=== PATIENT | male | born 1965 | race Caucasian/White ===

== ENCOUNTER 2021-12-19 09:12 | Observation (INO) | payer OTHER, SELFPAY ==
[2021-12-19] VITALS (14 sets, daily range): BP systolic 132–143; BP diastolic 68–91; PULSE 93–111; RESP 18–27; TEMP 36.4–37.1; O2SAT 91–95
--- NOTE | ~2021-12-19 | CT_ITS ---
EXAMINATION: CTA chest PE protocol DATE: 12/19/2021 10:25 INDICATION: Hemoptysis, tachycardia. Covid-positive. TECHNIQUE: Computed tomography angiography (CTA) of the chest was performed with 100 mL Omnipaque-350 intravenous contrast timed to evaluate the pulmonary arteries. Coronal maximum intensity projection 3D-reconstructions were created by the technologist. Automated exposure control and iterative reconst ruction technique were employed. Exam dose: 747.90 mGy-cm total exam DLP. COMPARISON: None. FINDINGS: There are multiple scattered bilateral areas of prominent patchy consolidation, most promin ent in the middle lobe, with extensive middle lobe air bronchograms, with prominent posterior lateral involvement of the left upper lobe, anterior and medial aspects of the superior segment of the right lower lobe, in addition to both posterior basilar lower lobes. There are several up to 7 mm nodular opacities of the right upper lobe. Mild right pleural effusion. There is atherosclerotic calcification of the thoracic aorta but no thoracic aortic aneurysm or disse ction is detected. Mild bilateral hilar and mediastinal lymph node prominence may be a reactive, secondary to extensive bilateral pulmonary infiltrates. The pulmonary arteries are moderately opacified, without apparent pulmonary embolism. There are numerous gallstones in the dependent aspect of the gallbladder. No pericholecystic fluid or fat stranding is evident. There is surface nodularity of the liver suggesting cirrhosis. Borderline or increased splenic size. No adrenal mass lesion. Minimal bilateral gynecomastia. IMPRESSION: Extensive bilateral patchy consolidating pulmonary infiltrates since several up to 7 mm right upper lobe pulmonary nodules. Findings are likely due to extensive bilateral pneumonia. Continued radiographic follow-up is recommended to ensure complete clearing of the infiltrates and pa rticularly the nodular opacities, in order to exclude any pulmonary malignancy or metastatic disease No evidence of pulmonary embolism Cholelithiasis Surface nodularity of liver suggests cirrhosis Reviewed, dictated and finalized at [facility]. Reviewed, dictated and finalized at [facility]. IMPRESSION: Extensive bilateral patchy consolidating pulmonary infiltrates sin ce several up to 7 mm right upper lobe pulmonary nodules. Findings are likely d ue to extensive bilateral pneumonia. Continued radiographic follow-up is recommended to ensure complete clearing of the infiltrates and particularly the nodular opacities, in order to exclude any pulmonary malignancy or metastatic disease No evidence of pulmonary embolism Cholelithiasis Surface nodularity of liver suggests cirrhosis
--- NOTE | ~2021-12-19 | XR_ITS ---
XR chest 1V portable DATE: 12/22/2021 06:51 INDICATION: Covid pneumonia TECHNIQUE: Portable upright AP chest on 12/22/2021 at 0555 hours COMPARISON: 01/05/2022 CT pulmonary scan FINDINGS: Persistent patchy bilateral pulmonary infiltrates consistent with bilateral pneumonia. Hear t size appears within normal limits. No pneumothorax. IMPRESSION: Persistent patchy bilateral pulmonary infiltrates consistent with bilateral pneumonia Reviewed, dictated and finalized at [facility] R PRESS OPERATOR IMPRESSION: Persistent patchy bilateral pulmonary infiltrates consistent with b ilateral pneumonia
--- NOTE | 2021-12-19 09:26 | ECG_ITS ---
Measurements Intervals [place] Rate: 105 P: 54 GA: 129 QRS: 58 QRSD: 125 T: 13 QT: 366 QTc: 485 Interpretive Statements SINUS TACHYCARDIA RIGHT BUNDLE BRANCH BLOCK BASELINE ARTIFACT- V5 ABNORMAL ECG NO PREVIOUS ECG AVAILABLE FOR COMPARISON Electronically Signed On 12-19-2021 9:59:36 CDT by Charly Mcghee D.O.
--- NOTE | 2021-12-19 09:26 | ED.URI ---
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 He took a home COVID test that was positive 3 days ago upon symptom onset. Since then, his symptoms have been progressing in nature, states that he is short of breath all of the time , worse when lying down flat and with exertion. Additionally notes a cough that is productive of blood-tinged sputum, sinus congestion, pain across his anterior thorax and rib cage with cough, fatigue and body aches. Has not attempted any medication for his symptoms. Patient is not vaccinated against COVID. He denies any acute leg swelling, syncope, fevers. <SANDRA Durán Last Filed: 12/19/21 12:38> Related Data Allergies/Adverse Reactions: Allergies Allergy/AdvReac Type Severity Reaction Status Date / Time No Known Allergies Allergy Verified 12/19/21 09:25 <SANDRA Durán Last Filed: 12/19/21 12:38> Review of Systems Review of Systems: Gen.: Reports body aches. Denies fevers or chills Eyes: Denies eye pain or visual change ENT: Reports congestion Respiratory: Reports shortness of breath and cough CV: Reports chest pain GI: Denies abdominal pain nausea, emesis or diarrhea denies burning, urgency, frequency or hematuria Musculoskeletal: Denies back pain or muscle pain Neuro: Denies numbness, tingling, weakness or focal weakness Skin: Denies rash Except as documented, all other systems reviewed and negative <SANDRA Durán Last Filed: 12/19/21 12:38> [facility] Past Medical History Medical History: Medical History (Updated 12/19/21 @ 14:57 by Oneyda Agustin NP) Cirrhosis of liver COVID History of closed head injury Secondary to fall Hypoxia Osteoarthritis Tobacco abuse <Mamta Goetz PA-C - Last Filed: 12/19/21 12:38> Surgical History Surgical History: Surgical History (Updated 12/19/21 @ 14:44 by Oneyda Agustin NP) H/O colonoscopy with polypectomy S/P ORIF (open reduction internal fixation) fracture Right ankle with subsequent pin removal <Mamta Goetz PA-C - Last Filed: 12/19/21 12:38> Family History Family History: Family History Other Unknown family medical history <Mamta Goetz PA-C - Last Filed: 12/19/21 12:38> Social History Social History: Social History (Updated 12/19/21 @ 14:45 by Oneyda Agustin NP) Social History: The patient continues to smoke at least half a pack a cigarettes a day. The patient stated that he quit drinking alcohol many years ago. The patient this with his in they have 2 children. His is the durable power associate attorney for healthcare. 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 The patient does occasionally use marijuana. Who Code status full code Smoking packs per day: 0.5 Smoking cigarettes per day: 10.0 Years smoked: 43 Smoking pack-years: 21.50 Smoking status: Current every day smoker Alcohol intake: never Substance use type: marijuana Other substance usage details: occassional Last use: 12/15/21 Has the Lack of Transportation Kept You From Medical Appointments or From Getting Medications?: No Within the Past 12 Months, Were You Worried Whether Your Food Would Run Out Before You Got Money to Buy More?: Never True What is Your Housing Situation Today?: I Have Housing Are You Worried That in the Next 2
[2021-12-19 09:46] LABS: Hematocrit 39.8 % (42.0-52.0); Hemoglobin 14.2 g/dL (14.0-18.0); Mean Corpuscular HGB Conc 35.7 g/dl (32-36); Mean Corpuscular Hemoglobin 30.1 pg (26-34); Mean Corpuscular Volume 84.5 fl (80-100); Mean Platelet Volume 10.8 fl (7.4-10.4); Platelet Count Result 159 k/mm3 (150-375); Red Blood Count 4.71 M/mm3 (4.6-6.20); Red Cell Distribution Width 13.2 % (11.5-14.5); White Blood Count 33.6 K/mm3 (4.5-10.0)
[2021-12-19 09:56] LABS: Alanine Aminotransferase 43 U/L (6-50); Albumin Level 3.3 g/dL (3.5-5.1); Alkaline Phosphatase 294 U/L (38-126); Anion Gap 10 mmol/L (8-16); Aspartate Amino Transferase 92 U/L (17-59); Blood Urea Nitrogen 24 mg/dL (9-20); Calcium 7.9 mg/dL (8.4-10.2); Carbon Dioxide 23 mmol/L (22-30); Chloride 95 mmol/L (98-107); Estimated CRCL calculation 112 ml/min; Estimated Glomerular Filt Rate > 60; Glucose 129 mg/dL (65-110); Potassium 3.3 mmol/L (3.4-5.0); Sodium 128 mmol/L (137-145)
[2021-12-19 10:01] LABS: Lipase 52 U/L (23-300)
[2021-12-19 10:14] LABS: NT Pro B Type Natriuretic Pept 306 pg/mL (5-100); Troponin I < 0.012 ng/mL (0.000-0.034)
[2021-12-19 10:31] LABS: Band Neutrophils Percent 10 % (0-6); Lymphocytes Absolute Manual 4.03 K/mm3 (1.1-4.5); Metamyelocytes Percent 4 %; Monocytes Absolute Manual 3.36 K/mm3 (0.1-0.90); Monocytes Percent Manual 10 % (3-9); Neutrophils Absolute Manual 24.86 K/mm3 (1.3-6.7); Neutrophils Percent Manual 64 % (46-73); Platelet Estimate Adequate (Adequate); Poikilocytosis 1+ (NORMAL); Total Cells Counted 100
[2021-12-19 10:32] LABS: Schistocytes None Seen (NORMAL)
[2021-12-19 10:57] LABS: INR 1.3; Prothrombin Time 15.6 Seconds (11.1-14.7)
[2021-12-19 10:58] LABS: Partial Thromboplastin Time 31.7 SECONDS (22.3-36.8)
[2021-12-19] MEDS: SODIUM CHLORIDE 0.9% IV 1,000 ML 999 ML IV CONT ×2 (11:21→13:50)
[2021-12-19 11:49] LABS: Lactic Acid Reflex 1.3 mmol/L (0.7-2.0)
[2021-12-19 11:58] LABS: Alveolar/Arterial O2 Gradient 49.8 mmHg; Base Excess ABG -0.1 mEq/l (+/-2.0); Fractional Inspired Oxygen 21 %; HCO3 ABG 23.6 mEq/l (22.0-26.0); Modified Allen's Test Pass; Oxygen Content ABG 18.7 %vol (16.0-22.0); Oxyhemoglobin 89.4 % THb (90.0-100.0); PCO2 ABG 35.5 mmHg (35.0-45.0); PO2 ABG 57.4 mmHg (80.0-100.0); PO2 FiO2 Ratio Arterial Blood 2.73 %; Site Drawn LEFT RADIAL; Total Hemoglobin 14.9 g/dL (12.0-18.0)
--- NOTE | 2021-12-19 12:45 | ADMGEN ---
This patient, Cade Xie, was admitted to 2 Medical Room 260-. Patient/family oriented to hospital policies and general routines including ID bracelet, bed and alarms, visiting hours, pain management, procedures, bathroom and other care routines, personal items, smoking policy, room service/diet, and visiting hours. Information on how to activate the Rapid Response Team has been discussed. Patient/Family are encouraged to report perceived risks to care and to ask questions if they do not understand what they are told or what they should do.
[2021-12-19 12:57] LABS: Troponin I < 0.012 ng/mL (0.000-0.034)
--- NOTE | 2021-12-19 14:28 | PM.IMHP ---
H&P: HPI History of Present Illness Date/Time: 12/19/21 14:28 Chief Complaint: Upper respiratory infection Narrative: This is a 56-year-old male patient with a history of cirrhosis of liver of the liver due to alcohol abuse and has been sober for 2 years. The patient has been feeling short of breath for the last 3 days. He stated that he took a home test for COVID which was found to be positive. The patient is not vaccinated for COVID but stated that he did have COVID early in the pandemic and only had mild symptoms that to seem like a cold. However this feels worse than of cold. He stated he feels short of breath all the time and worse when he lays flat and with exertion. He has of pretty severe cough that produced blood tinged sputum. And he has headache and sinus congestion. He also had pain across his anterior chest and ribcage with a cough. He is fatigue and body aches. He did not take any medications [id number]. He did not take any antiviral medication but is willing to do so. The patient was found to be tachypneic and tachycardic. Patient's white count was found to be 33.6. His sodium is 128 and potassium 3.3. Chloride is 95. Unknown AST is 92 alkaline phosphatase is 294. Troponins are negative x2. BNP was 306. Chest CTA was read as the following?Extensive bilateral patchy consolidating pulmonary infiltrates since several up to 7 mm right upper lobe pulmonary nodules. Findings are likely due to extensive bilateral pneumonia. Continued radiographic follow-up is recommended to ensure complete clearing of the infiltrates and particularly the nodular opacities, in order to exclude any pulmonary malignancy or metastatic disease No evidence of pulmonary embolism Cholelithiasis Surface nodularity of liver suggests cirrhosis. The patient was started on azithromycin and Rocephin. He had been given IV fluids as well. The patient is being admitted to observation status on the date of service of 12/19/2021 Review of Systems Review of Systems: See HPI All systems reviewed & are unremarkable except as noted in HPI and below Constitutional: Constitutional: Reports as per HPI and Reports no additional constitutional complaints Eyes: Eyes: Reports as per HPI and Reports no additional eye complaints ENT: Reports system reviewed and no additional complaints, except as documented and Reports Normal hearing present Cardiovascular: Cardiovascular: Reports no additional cardiovascular complaints Respiratory: Respiratory: Reports no additional respiratory complaints and Reports no additional respiratory complaints Gastrointestinal: Gastrointestinal: Reports as per HPI and Reports no additional gastrointestinal complaints Musculoskeletal: Musculoskeletal: Reports no additional musculoskeletal complaints Integumentary/Breasts: Skin/Breast: Reports system reviewed and no additional complaints, except as docu and Reports as per HPI Neurologic: Reports system reviewed and no additional complaints, except as documented, Reports as per HPI and Reports Normal hearing present Psychiatric: Psychiatric: Reports no additional psychiatric complaints and Reports as per HPI Endocrine: Endocrine: Reports no additional endocrine complaints Hematologic/Lymphatic: Hematologic/Lymphatic: Reports no additional hematologic/lymphatic complaints Allergic/Immunologic: Allergic/Immunologic: Reports no additional allergic/immunologic complaints [facility] Past Medical History Medical History (Updated 12/19/21 @ 14:57 by Oneyda Agustin NP) Cirrhosis of liver COVID History of closed head injury Secondary to fall Hypoxia Osteoarthritis Tobacco abuse Surgical History Surgical History (Updated 12/19/21 @ 14:44 by Oneyda Agustin NP) H/O colonoscopy with polypectomy S/P ORIF (open reduction internal fixation) fracture Right ankle with subsequent pin removal Family History Family History
[2021-12-19] MEDS: POTASSIUM CHLORIDE 20 MEQ PACKET (FOR LIQUID) PO (15:18)
[2021-12-19] MEDS: guaiFENesin/DEXTROMETHORPHAN 10 ML UDC PO ×2 (15:18→20:22)
[2021-12-19] MEDS: REMDESIVIR 200 MG/NS 250 ML 200 MG/250 ML BAG 250 MG IVPB (15:18)
[2021-12-19 15:30] LABS: Alanine Aminotransferase 40 U/L (6-50); Anion Gap 8 mmol/L (8-16); Blood Urea Nitrogen 19 mg/dL (9-20); Calcium 7.1 mg/dL (8.4-10.2); Carbon Dioxide 23 mmol/L (22-30); Chloride 98 mmol/L (98-107); Estimated CRCL calculation 126 ml/min; Estimated Glomerular Filt Rate > 60; Glucose 127 mg/dL (65-110); Sodium 129 mmol/L (137-145)
[2021-12-19 15:34] LABS: INR 1.4; Prothrombin Time 16.3 Seconds (11.1-14.7)
[2021-12-19 15:41] LABS: Troponin I < 0.012 ng/mL (0.000-0.034)
--- NOTE | 2021-12-19 16:07 | WPDGICN ---
Assessment and Plan Assessment and plan (1) Cirrhosis of liver: Code(s): K74.60 - Unspecified cirrhosis of liver Status: Acute Assessment and Plan: He was told, when he last left [place] a year ago that his cirrhosis was stable and that he no longer needed medication. He thinks that his last ultrasound was about 1 year ago. He has not gotten established with any physicians here yet in [place]. I will check a blood ammonia level. INR is elevated at 1.4, not unexpectedly. I will order an ultrasound of the liver prior to discharge. He is to uncomfortable at this point to attempt (2) COVID: Code(s): U07.1 - COVID-19 Status: Acute Assessment and Plan: he has been started on remdesivir. (3) Bilateral pneumonia: Code(s): J18.9 - Pneumonia, unspecified organism Status: Acute Assessment and Plan: he is on azithromycin and Ceftriaxone. He is also on inhalers. GI Consult Note Consult date/time: 12/19/21 16:07 HPI: Cade Xie is a 56 year old male Who has been progressively short of breath and weak with a constant cough for the last several days. He tested himself and was positive for COVID. He recalls that he had COVID couple of years ago and was only 0 for about 4 days. He feels much worse this time. I am asked to see him because he has a diagnosis of cirrhosis. He states that that diagnosis was made about 2 years ago. He was in the hospital and told that he has liver tests were not normal. He recalls having a distended stomach and he did have it sounds like, a paracentesis. He thinks he was on medication for a while but was told he no longer needed medication. Was told he only needs to eat prudently and stay away from alcohol. He had been drinking heavily at beginning of COVID but now is sober for 2 years. He has been on low-sodium diet as he was instructed. He does not recall ever being jaundiced. He has not had hepatitis. Review of Systems Review of Systems: All systems reviewed & are unremarkable except as noted in HPI and below PMFSH Past Medical History Medical History (Updated 12/19/21 @ 14:57 by Oneyda Agustin NP) Cirrhosis of liver COVID History of closed head injury Secondary to fall Hypoxia Osteoarthritis Tobacco abuse Surgical History Surgical History (Updated 12/19/21 @ 14:44 by Oneyda Agustin NP) H/O colonoscopy with polypectomy S/P ORIF (open reduction internal fixation) fracture Right ankle with subsequent pin removal Family History Family History Other Unknown family medical history Social History Social History (Updated 12/19/21 @ 14:45 by Oneyda Agustin NP) Social History: The patient continues to smoke at least half a pack a cigarettes a day. The patient stated that he quit drinking alcohol many years ago. The patient this with his in they have 2 children. His is the durable power finance attorney for healthcare. 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 The patient does occasionally use marijuana. Who Code status full code Smoking packs per day: 0.5 Smoking cigarettes per day: 10.0 Years smoked: 43 Smoking pack-years: 21.50 Smoking status: Current every day smoker Alcohol intake: never Substance use type: marijuana Other substance usage details: occassional Last use: 12/15/21 Has the Lack of Transportation Kept You From Medical Appointments or From Getting Medications?: No Within the Past 12 Months, Were You Worried Whether Your Food Would Run Out Before You Got Money to Buy More?: Never True What is Your Housing Situation Today?: I Have Housing Are You Worried That in the Next 2 Months, You May Not Have Your Own Housing to Live In?: No Do You Have Trouble Paying Your Heating Or Electricity Bill?: No Do You Have Trouble Paying For Medicines?: No Are You Currently Unemployed
[2021-12-19 17:35] LABS: SARS-CoV-2 RNA PCR Positive
[2021-12-19 17:51] LABS: Ammonia 65 umol/L (9-30)
[2021-12-19 23:44] LABS: Sodium Urine Random < 5 meq/L
[2021-12-20] VITALS (9 sets, daily range): BP systolic 112–131; BP diastolic 60–76; PULSE 79–87; RESP 18–20; TEMP 36.8–36.9; O2SAT 93–95
[2021-12-20 05:36] LABS: Hematocrit 38.3 % (42.0-52.0); Hemoglobin 13.6 g/dL (14.0-18.0); Mean Corpuscular HGB Conc 35.5 g/dl (32-36); Mean Corpuscular Hemoglobin 30.2 pg (26-34); Mean Corpuscular Volume 85.1 fl (80-100); Mean Platelet Volume 11.1 fl (7.4-10.4); Platelet Count Result 151 k/mm3 (150-375); Red Cell Distribution Width 13.3 % (11.5-14.5); White Blood Count 31.1 K/mm3 (4.5-10.0)
[2021-12-20 05:42] LABS: INR 1.3; Prothrombin Time 15.9 Seconds (11.1-14.7)
[2021-12-20 05:43] LABS: Alanine Aminotransferase 46 U/L (6-50); Albumin Level 3.1 g/dL (3.5-5.1); Alkaline Phosphatase 253 U/L (38-126); Anion Gap 7 mmol/L (8-16); Aspartate Amino Transferase 82 U/L (17-59); Bilirubin,Total 2.4 mg/dL (0.2-1.3); Blood Urea Nitrogen 15 mg/dL (9-20); Calcium 7.8 mg/dL (8.4-10.2); Carbon Dioxide 24 mmol/L (22-30); Chloride 104 mmol/L (98-107); Estimated CRCL calculation 126 ml/min; Estimated Glomerular Filt Rate > 60; Glucose 141 mg/dL (65-110); Lactate Dehydrogenase 388 U/L (120-246); Magnesium 2.4 mg/dL (1.6-2.3); Potassium 3.9 mmol/L (3.4-5.0); Sodium 135 mmol/L (137-145)
[2021-12-20 06:28] LABS: Band Neutrophils Percent 16 % (0-6); Lymphocytes Absolute Manual 6.22 K/mm3 (1.1-4.5); Metamyelocytes Percent 2 %; Monocytes Absolute Manual 0.93 K/mm3 (0.1-0.90); Monocytes Percent Manual 3 % (3-9); Neutrophils Absolute Manual 23.32 K/mm3 (1.3-6.7); Neutrophils Percent Manual 59 % (46-73); Platelet Estimate Adequate (Adequate); Schistocytes None Seen (NORMAL); Total Cells Counted 100
--- NOTE | 2021-12-20 07:28 | P.PNIM_ITS ---
Progress Note: A&P Assessment and Plan (1) Bilateral pneumonia: Qualifiers: Pneumonia type: due to unspecified organism Lung location: unspecified part of lung Qualified Code(s): J18.9 - Pneumonia, unspecified organism Code(s): J18.9 - Pneumonia, unspecified organism Status: Acute Assessment and Plan: Patient presented to the ED for c/o fatigue, shortness of breath and positive COVID test at home 3 days prior to admission. CTA chest shows Extensive bilateral patchy consolidating pulmonary infiltrates. WBC 33.6 on admission. * Received IV Azithromycin 500 mg and IV Rocephin 1 gram in ED 12/19/21 * blood and sputum cultures are pending. * Continue IV Rocephin and Azithromycin PO. * WBC 31 today and slightly improved from admission. Patient reports significant improvement in breathing. * Continue treatment for COVID19 * Monitor respiratory status and wean O2 as tolerated for spO2>92% (2) COVID: Code(s): U07.1 - COVID-19 Status: Acute Assessment and Plan: Patient with positive home COVID test 3 days prior to admission. SARS-COV2 PCR test positive in ED 12/19/21 and the patient requiring 2 L O2 per nasal cannula. * Started on Remdesivir IV therapy, first dose 12/19/21 * Started on dexamethasone 6 mg IV, first dose 12/19/21. Transition to oral dexamethasone in am. * Continue PRN albuterol MDI * Monitor LFTs and renal function while on therapy. * Continue COVID19 specific isolation * Patient is not vaccinated. He was encouraged to receive 2-dose series when feeling better to prevent future severe infections. (3) Hypoxia: Code(s): R09.02 - Hypoxemia Status: Acute Assessment and Plan: As above treatment for pneumonia and COVID19. Titrate oxygen to keep O2 level above 92%. (4) Cirrhosis of liver: Qualifiers: Hepatic cirrhosis type: alcoholic cirrhosis Ascites presence: with ascites Qualified Code(s): K70.31 - Alcoholic cirrhosis of liver with ascites Code(s): K74.60 - Unspecified cirrhosis of liver Status: Acute Assessment and Plan: H/o alcohol liver cirrhosis diagnosed at another facility. Not currently on medications. Patient has been sober for 2 years. * CT shows Cholelithiasis and surface nodularity of liver suggests cirrhosis * LFTs mildly elevated AST 82, ALT 46, Alk Phos 388, Tbli 2.4. ammonia 65. Monitor LFTs while on therapy * Neurologically intact without evidence of hepatic encephalopathy. Hold lactulose for now. * GI consulted for assistance with management * Low salt diet (5) Tobacco abuse: Code(s): Z72.0 - Tobacco use Status: Acute Assessment and Plan: Current tobacco use with 21.5 pack year history. * Counseled to quit. He reports decreasing number per day currently. * Continue nicotine patch. (6) Hypokalemia: Code(s): E87.6 - Hypokalemia Status: Acute Assessment and Plan: Potassium level 3.0 on admission. Given 40 mEQ PO x1. Mag level 2. K 3.9 now. (7) Hyponatremia: Code(s): E87.1 - Hypo-osmolality and hyponatremia Status: Acute Assessment and Plan: Sodium level 128 on admission. Unknown baseline. The patient was given IV fluids in the emergency room, but not continued on admission. * Repeat 135. Asymptomatic. * Likely secondary to hypovolemia hyponatremia. Plan CODE STATUS: FULL CODE Disposition: home when medically stable. Time Spent With Patient Time with patient: 15 - 25 minutes Subjective Date/time seen: 12/20/21 07:28
--- NOTE | 2021-12-20 07:28 | PM.IMPN ---
Progress Note: A&P Assessment and Plan (1) Bilateral pneumonia: Qualifiers: Pneumonia type: due to unspecified organism Lung location: unspecified part of lung Qualified Code(s): J18.9 - Pneumonia, unspecified organism Code(s): J18.9 - Pneumonia, unspecified organism Status: Acute Assessment and Plan: Patient presented to the ED for c/o fatigue, shortness of breath and positive COVID test at home 3 days prior to admission. CTA chest shows Extensive bilateral patchy consolidating pulmonary infiltrates. WBC 33.6 on admission. Received IV Azithromycin 500 mg and IV Rocephin 1 gram in ED 12/19/21 blood and sputum cultures are pending. Continue IV Rocephin and Azithromycin PO. WBC 31 today and slightly improved from admission. Patient reports significant improvement in breathing. Continue treatment for COVID19 Monitor respiratory status and wean O2 as tolerated for spO2>92% (2) COVID: Code(s): U07.1 - COVID-19 Status: Acute Assessment and Plan: Patient with positive home COVID test 3 days prior to admission. SARS-COV2 PCR test positive in ED 12/19/21 and the patient requiring 2 L O2 per nasal cannula. Started on Remdesivir IV therapy, first dose 12/19/21 Started on dexamethasone 6 mg IV, first dose 12/19/21. Transition to oral dexamethasone in am. Continue PRN albuterol MDI Monitor LFTs and renal function while on therapy. Continue COVID19 specific isolation Patient is not vaccinated. He was encouraged to receive 2-dose series when feeling better to prevent future severe infections. (3) Hypoxia: Code(s): R09.02 - Hypoxemia Status: Acute Assessment and Plan: As above treatment for pneumonia and COVID19. Titrate oxygen to keep O2 level above 92%. (4) Cirrhosis of liver: Qualifiers: Hepatic cirrhosis type: alcoholic cirrhosis Ascites presence: with ascites Qualified Code(s): K70.31 - Alcoholic cirrhosis of liver with ascites Code(s): K74.60 - Unspecified cirrhosis of liver Status: Acute Assessment and Plan: H/o alcohol liver cirrhosis diagnosed at another facility. Not currently on medications. Patient has been sober for [address] shows Cholelithiasis and surface nodularity of liver suggests cirrhosis LFTs mildly elevated AST 82, ALT 46, Alk Phos 388, Tbli 2.4. ammonia 65. Monitor LFTs while on therapy Neurologically intact without evidence of hepatic encephalopathy. Hold lactulose for now. GI consulted for assistance with management Low salt diet (5) Tobacco abuse: Code(s): Z72.0 - Tobacco use Status: Acute Assessment and Plan: Current tobacco use with 21.5 pack year history. Counseled to quit. He reports decreasing number per day currently. Continue nicotine patch. (6) Hypokalemia: Code(s): E87.6 - Hypokalemia Status: Acute Assessment and Plan: Potassium level 3.0 on admission. Given 40 mEQ PO x1. Mag level 2. K 3.9 now. (7) Hyponatremia: Code(s): E87.1 - Hypo-osmolality and hyponatremia Status: Acute Assessment and Plan: Sodium level 128 on admission. Unknown baseline. The patient was given IV fluids in the emergency room, but not continued on admission. Repeat 135. Asymptomatic. Likely secondary to hypovolemia hyponatremia. Plan CODE STATUS: FULL CODE Disposition: home when medically stable. Time Spent With Patient Time with patient: 15 - 25 minutes Subjective Date/time seen: 12/20/21 07:28 Patient sitting up in the bed. His breathing feels better today. Blood-tinged sputum has resolved. He still has episodes of SOB and PONCE especially after a coughing fit. Nursing notes reviewed and without significant events. Review of Systems Review of Systems: All systems reviewed & are unremarkable except as noted in HPI and below Exam Narrative: General: No acute distress.? Well-developed and well-groomed?adult m
[2021-12-20] MEDS: ENOXAPARIN 40 MG/0.4 ML SYRINGE SUB-Q (08:13)
[2021-12-20] MEDS: REMDESIVIR 100 MG/NS 250 ML 100 MG/250 ML BAG 250 MG IVPB (09:38)
[2021-12-21] VITALS: PULSE 80
[2021-12-21 04:00] VITALS: PULSE 69
[2021-12-21 04:45] VITALS: BP 131/81; PULSE 70; RESP 20; TEMP 36.3; O2SAT 94
[2021-12-21 05:55] LABS: Hematocrit 38.6 % (42.0-52.0); Hemoglobin 13.2 g/dL (14.0-18.0); Mean Corpuscular HGB Conc 34.2 g/dl (32-36); Mean Corpuscular Hemoglobin 29.7 pg (26-34); Mean Corpuscular Volume 86.9 fl (80-100); Mean Platelet Volume 11.1 fl (7.4-10.4); Platelet Count Result 144 k/mm3 (150-375); Red Blood Count 4.44 M/mm3 (4.6-6.20); Red Cell Distribution Width 13.9 % (11.5-14.5); White Blood Count 28.6 K/mm3 (4.5-10.0)
[2021-12-21 06:02] LABS: INR 1.3; Prothrombin Time 16.1 Seconds (11.1-14.7)
[2021-12-21 06:08] LABS: Alanine Aminotransferase 55 U/L (6-50); Alkaline Phosphatase 470 U/L (38-126); Anion Gap 12 mmol/L (8-16); Aspartate Amino Transferase 86 U/L (17-59); Bilirubin,Total 1.3 mg/dL (0.2-1.3); Blood Urea Nitrogen 18 mg/dL (9-20); Calcium 7.7 mg/dL (8.4-10.2); Carbon Dioxide 26 mmol/L (22-30); Chloride 100 mmol/L (98-107); Estimated CRCL calculation 126 ml/min; Estimated Glomerular Filt Rate > 60; Glucose 142 mg/dL (65-110); Potassium 3.6 mmol/L (3.4-5.0); Sodium 138 mmol/L (137-145)
[2021-12-21 08:00] VITALS: PULSE 69
[2021-12-21] MEDS: REMDESIVIR 100 MG/NS 250 ML 100 MG/250 ML BAG 250 MG IVPB (10:14)
[2021-12-21] MEDS: DEXAMETHASONE 2 MG TABLET 6 MG PO (10:16)
[2021-12-21] MEDS: ENOXAPARIN 40 MG/0.4 ML SYRINGE SUB-Q (10:16)
[2021-12-21] MEDS: AZITHROMYCIN 250 MG TABLET 500 MG PO (10:18)
--- NOTE | 2021-12-21 11:22 | P.PNIM_ITS ---
Progress Note: A&P Assessment and Plan (1) Bilateral pneumonia: Qualifiers: Lung location: unspecified part of lung Pneumonia type: due to unspecified organism Qualified Code(s): J18.9 - Pneumonia, unspecified organism Code(s): J18.9 - Pneumonia, unspecified organism Status: Acute Assessment and Plan: Patient presented to the ED for c/o fatigue, shortness of breath and positive COVID test at home 3 days prior to admission. CTA chest shows Extensive bilateral patchy consolidating pulmonary infiltrates. WBC 33.6 on admission. * Received IV Azithromycin 500 mg and IV Rocephin 1 gram in ED 12/19/21 * blood and sputum cultures are pending. * Continue IV Rocephin and Azithromycin PO. * WBC 31 today and slightly improved from admission. Patient reports significant improvement in breathing. * Continue treatment for COVID19 * Monitor respiratory status and wean O2 as tolerated for spO2>92% * 12/21/21 WBC 28, afebrile. Transition to oral cefdinir 300 mg PO BID to complete 7-day antibiotic course and complete azithromycin PO. Continue mucinex. (2) COVID: Code(s): U07.1 - COVID-19 Status: Acute Assessment and Plan: Patient with positive home COVID test 3 days prior to admission. SARS-COV2 PCR test positive in ED 12/19/21 and the patient requiring 2 L O2 per nasal cannula. * Started on Remdesivir IV therapy, first dose 12/19/21 * Started on dexamethasone 6 mg IV, first dose 12/19/21. Transition to oral dexamethasone in am. * Continue PRN albuterol MDI * Monitor LFTs and renal function while on therapy. * Continue COVID19 specific isolation * Patient is not vaccinated. He was encouraged to receive 2-dose series when feeling better to prevent future severe infections. * 12/21/21 Stable. Still with dyspnea and intermittent O2 use. Continue current management. Day 3 remdesivir and dexamethasone. Repeat chest x-ray in am. Tessalon perles 100 mg TID PRN cough. (3) Hypoxia: Code(s): R09.02 - Hypoxemia Status: Acute Assessment and Plan: As above treatment for pneumonia and COVID19. Titrate oxygen to keep O2 level above 92%. (4) Cirrhosis of liver: Qualifiers: Ascites presence: with ascites Hepatic cirrhosis type: alcoholic cirrhosis Qualified Code(s): K70.31 - Alcoholic cirrhosis of liver with ascites Code(s): K74.60 - Unspecified cirrhosis of liver Status: Acute Assessment and Plan: H/o alcohol liver cirrhosis diagnosed at another facility. Not currently on medications. Patient has been sober for 2 years. * CT shows Cholelithiasis and surface nodularity of liver suggests cirrhosis * LFTs mildly elevated AST 82, ALT 46, Alk Phos 388, Tbli 2.4. ammonia 65. Monitor LFTs while on therapy * Neurologically intact without evidence of hepatic encephalopathy. Hold lactulose for now. * GI consulted for assistance with management * Low salt diet * 12/21/21 unchanged. Monitor vitals, mentation and chemistry. (5) Tobacco abuse: Code(s): Z72.0 - Tobacco use Status: Acute Assessment and Plan: Current tobacco use with 21.5 pack year history. * Counseled to quit. He reports decreasing number per day currently. * Continue nicotine patch. (6) Hypokalemia: Code(s): E87.6 - Hypokalemia Status: Acute Assessment and Plan: Potassium level 3.0 on admission. Given 40 mEQ PO x1. Mag level 2. Repeat k 3.9. 12/21/21 Stable, K 3.6 (7) Hyponatremia: Code(s): E87.1 - Hypo-osmolality and hyponatremia Status: Acute Assessment and Plan
--- NOTE | 2021-12-21 11:22 | PM.IMPN ---
Progress Note: A&P Assessment and Plan (1) Bilateral pneumonia: Qualifiers: Lung location: unspecified part of lung Pneumonia type: due to unspecified organism Qualified Code(s): J18.9 - Pneumonia, unspecified organism Code(s): J18.9 - Pneumonia, unspecified organism Status: Acute Assessment and Plan: Patient presented to the ED for c/o fatigue, shortness of breath and positive COVID test at home 3 days prior to admission. CTA chest shows Extensive bilateral patchy consolidating pulmonary infiltrates. WBC 33.6 on admission. Received IV Azithromycin 500 mg and IV Rocephin 1 gram in ED 12/19/21 blood and sputum cultures are pending. Continue IV Rocephin and Azithromycin PO. WBC 31 today and slightly improved from admission. Patient reports significant improvement in breathing. Continue treatment for COVID19 Monitor respiratory status and wean O2 as tolerated for spO2>92% 12/21/21 WBC 28, afebrile. Transition to oral cefdinir 300 mg PO BID to complete 7-day antibiotic course and complete azithromycin PO. Continue mucinex. (2) COVID: Code(s): U07.1 - COVID-19 Status: Acute Assessment and Plan: Patient with positive home COVID test 3 days prior to admission. SARS-COV2 PCR test positive in ED 12/19/21 and the patient requiring 2 L O2 per nasal cannula. Started on Remdesivir IV therapy, first dose 12/19/21 Started on dexamethasone 6 mg IV, first dose 12/19/21. Transition to oral dexamethasone in am. Continue PRN albuterol MDI Monitor LFTs and renal function while on therapy. Continue COVID19 specific isolation Patient is not vaccinated. He was encouraged to receive 2-dose series when feeling better to prevent future severe infections. 12/21/21 Stable. Still with dyspnea and intermittent O2 use. Continue current management. Day 3 remdesivir and dexamethasone. Repeat chest x-ray in am. Tessalon perles 100 mg TID PRN cough. (3) Hypoxia: Code(s): R09.02 - Hypoxemia Status: Acute Assessment and Plan: As above treatment for pneumonia and COVID19. Titrate oxygen to keep O2 level above 92%. (4) Cirrhosis of liver: Qualifiers: Ascites presence: with ascites Hepatic cirrhosis type: alcoholic cirrhosis Qualified Code(s): K70.31 - Alcoholic cirrhosis of liver with ascites Code(s): K74.60 - Unspecified cirrhosis of liver Status: Acute Assessment and Plan: H/o alcohol liver cirrhosis diagnosed at another facility. Not currently on medications. Patient has been sober for [address] shows Cholelithiasis and surface nodularity of liver suggests cirrhosis LFTs mildly elevated AST 82, ALT 46, Alk Phos 388, Tbli 2.4. ammonia 65. Monitor LFTs while on therapy Neurologically intact without evidence of hepatic encephalopathy. Hold lactulose for now. GI consulted for assistance with management Low salt diet 12/21/21 unchanged. Monitor vitals, mentation and chemistry. (5) Tobacco abuse: Code(s): Z72.0 - Tobacco use Status: Acute Assessment and Plan: Current tobacco use with 21.5 pack year history. Counseled to quit. He reports decreasing number per day currently. Continue nicotine patch. (6) Hypokalemia: Code(s): E87.6 - Hypokalemia Status: Acute Assessment and Plan: Potassium level 3.0 on admission. Given 40 mEQ PO x1. Mag level 2. Repeat k 3.9. 12/21/21 Stable, K 3.6 (7) Hyponatremia: Code(s): E87.1 - Hypo-osmolality and hyponatremia Status: Acute Assessment and Plan: Sodium level 128 on admission. Unknown baseline. The patient was given IV fluids in the emergency room, but not continued on admission. Repeat 135. Asymptomatic. Likely secondary to hypovolemia hyponatremia. 12/21/21 Stable. sodium 138 Plan CODE STATUS: FULL CODE Disposition: home when medically stable. Possible discharge in 1-2 days. Time Spent With Patient Time with patient: 15
[2021-12-21 12:05] LABS: Band Neutrophils Percent 12 % (0-6); Lymphocytes Absolute Manual 4.29 K/mm3 (1.1-4.5); Metamyelocytes Percent 5 %; Monocytes Absolute Manual 0.57 K/mm3 (0.1-0.90); Monocytes Percent Manual 2 % (3-9); Myelocytes Percent 2 %; Neutrophils Absolute Manual 21.16 K/mm3 (1.3-6.7); Neutrophils Percent Manual 62 % (46-73); Nucleated Red Blood Cells 1 %; Plasma Cells 2; Total Cells Counted 100
[2021-12-21 12:06] LABS: Anisocytosis 1+ (NORMAL); Platelet Estimate Adequate (Adequate)
[2021-12-21 12:07] LABS: Atypical Lymphocytes Present; Schistocytes None Seen (NORMAL)
[2021-12-21] MEDS: guaiFENesin 12 HR 600 MG TABCR PO ×2 (12:44→20:42)
[2021-12-21] MEDS: CEFDINIR 300 MG CAPSULE PO ×2 (12:44→20:42)
[2021-12-21 14:59] VITALS: BP 128/69; PULSE 85; RESP 18; TEMP 36.8; O2SAT 96
[2021-12-21 21:43] VITALS: BP 142/73; PULSE 73; RESP 18; TEMP 36.6; O2SAT 95
[2021-12-22 05:32] VITALS: BP 145/51; PULSE 70; RESP 18; TEMP 36.7; O2SAT 96
[2021-12-22 06:48] LABS: Hematocrit 37.8 % (42.0-52.0); Hemoglobin 12.8 g/dL (14.0-18.0); Immature Platelet Fraction Pct 8.2 % (0.9-11.2); Mean Corpuscular HGB Conc 33.9 g/dl (32-36); Mean Corpuscular Hemoglobin 30.3 pg (26-34); Mean Corpuscular Volume 89.6 fl (80-100); Mean Platelet Volume 10.9 fl (7.4-10.4); Platelet Count Result 150 k/mm3 (150-375); Red Blood Count 4.22 M/mm3 (4.6-6.20); White Blood Count 22.6 K/mm3 (4.5-10.0)
[2021-12-22 06:51] LABS: Alanine Aminotransferase 49 U/L (6-50); Albumin Level 2.9 g/dL (3.5-5.1); Alkaline Phosphatase 393 U/L (38-126); Anion Gap 10 mmol/L (8-16); Aspartate Amino Transferase 63 U/L (17-59); Bilirubin,Total 1.2 mg/dL (0.2-1.3); Blood Urea Nitrogen 15 mg/dL (9-20); Calcium 7.6 mg/dL (8.4-10.2); Carbon Dioxide 25 mmol/L (22-30); Chloride 103 mmol/L (98-107); Estimated CRCL calculation 145 ml/min; Estimated Glomerular Filt Rate > 60; Glucose 137 mg/dL (65-110); Potassium 3.6 mmol/L (3.4-5.0); Sodium 138 mmol/L (137-145)
[2021-12-22] MEDS: REMDESIVIR 100 MG/NS 250 ML 100 MG/250 ML BAG 250 MG IVPB (10:19)
[2021-12-22] MEDS: ENOXAPARIN 40 MG/0.4 ML SYRINGE SUB-Q (10:19)
[2021-12-22] MEDS: AZITHROMYCIN 250 MG TABLET 500 MG PO (10:19)
[2021-12-22] MEDS: DEXAMETHASONE 2 MG TABLET 6 MG PO (10:20)
[2021-12-22] MEDS: CEFDINIR 300 MG CAPSULE PO (10:21)
[2021-12-22] MEDS: guaiFENesin 12 HR 600 MG TABCR PO (10:21)
[2021-12-22 10:39] LABS: Atypical Lymphocytes Present; Band Neutrophils Percent 11 % (0-6); Lymphocytes Absolute Manual 2.48 K/mm3 (1.1-4.5); Metamyelocytes Percent 2 %; Monocytes Absolute Manual 1.13 K/mm3 (0.1-0.90); Monocytes Percent Manual 5 % (3-9); Neutrophils Absolute Manual 18.53 K/mm3 (1.3-6.7); Neutrophils Percent Manual 71 % (46-73); Platelet Estimate Adequate (Adequate); Schistocytes None Seen (NORMAL); Total Cells Counted 100
--- NOTE | 2021-12-22 11:08 | PM.DS ---
DS: Admitting Diagnosis Discharge Date 12/22/21 1212 Admitting Diagnosis Bilateral pneumonia COVID Hypoxia H/O Cirrhosis of liver, compensated Tobacco abuse?Hypokalemia? Hyponatremia DS: Discharge Diagnosis Discharge Diagnosis (1) Bilateral pneumonia: Qualifiers: Lung location: unspecified part of lung Pneumonia type: due to unspecified organism Qualified Code(s): J18.9 - Pneumonia, unspecified organism Code(s): J18.9 - Pneumonia, unspecified organism Status: Acute (2) COVID: Code(s): U07.1 - COVID-19 Status: Acute (3) Hypoxia: Code(s): R09.02 - Hypoxemia Status: Acute (4) Cirrhosis of liver: Qualifiers: Ascites presence: with ascites Hepatic cirrhosis type: alcoholic cirrhosis Qualified Code(s): K70.31 - Alcoholic cirrhosis of liver with ascites Code(s): K74.60 - Unspecified cirrhosis of liver Status: Chronic (5) Tobacco abuse: Code(s): Z72.0 - Tobacco use Status: Chronic Assessment and Plan: (6) Hypokalemia: Code(s): E87.6 - Hypokalemia Status: Acute (7) Hyponatremia: Code(s): E87.1 - Hypo-osmolality and hyponatremia Status: Acute (8) Cholelithiasis: Qualifiers: Cholelithiasis location: gallbladder Cholecystitis presence: without cholecystitis Code(s): K80.20 - Calculus of gallbladder without cholecystitis without obstruction Status: Chronic DS: Summary Hospital Course Reason for hospitalization: URI symptoms Hospital Course: Cade Xie is a 56-year-old male patient with alcohol liver cirrhosis, history of alcohol abuse in remission, tobacco dependence and arthritis. The patient reported feeling short of breath for the 3 days prior to admission, prompting his ED visit.? He stated that he took a home test for COVID which was found to be positive.? He is not vaccinated for COVID but stated that he did have COVID early in the pandemic and only had mild symptoms.? He reported feeling short of breath all the time, which is worse when he lays flat, as well as with exertion.? He has a severe cough that produced blood tinged sputum.?He endorsed headache, sinus congestion, and pain across his anterior chest and ribcage with coughing.? He is fatigued and has body aches.? He did not take any medications at home and was not seen by a physician.? The patient was tachypneic and tachycardic upon arrival.? Patient's white count was 33.6, sodium 128, potassium 3.3, and Chloride 95.? AST is 92, ALT 46, alkaline phosphatase is 294, Tbili 3.0, LDH 388 and ammonia 65; unknown baseline.? Troponins were negative x2 and BNP was 306.? Chest CTA demonstrated extensive bilateral patchy consolidating pulmonary infiltrates with 7 mm right upper lobe pulmonary nodules, no PE noted, cholelithiasis and liver nodularity suggestive of cirrhosis. He was started on IV Azithromycin and IV Rocephin 1 gram in the ED. He was admitted to the medical floor and placed in [id number] specific isolation. He was placed on 2L NC O2 for spO2 91% with c/o dyspnea. Multilobar pneumonia Patient presented to the ED for c/o fatigue, shortness of breath and positive COVID test at home 3 days prior to admission. CTA chest shows Extensive bilateral patchy consolidating pulmonary infiltrates. WBC 33.6 on admission. He was started on IV Azithromycin 500 mg and IV Rocephin 1 gram in ED 12/19/21 which was continued on admission. He received Azithromycin 500 mg 12/19-12/22/21. He was treated with IV Rocephin 12/19-12/19/21 and transitioned to cefdinir 300 mg BID on 12/21/21. He was discharged home on cefdinir for an additional 4 days. Blood and sputum cultures were without growth. Group A strep throat culture was negative. His leukocytosis improved. He was weaned to room air with adequate O2 sats >90% at rest and exertion. He also reported improvement in dyspnea and pleuritic chest pain. Pneumococcal vaccination was encouraged. COVID:
[2021-12-23 16:19] LABS: Osmolality, Urine 260 mOsm/kg (50-1200)
[2021-12-23 16:45] LABS: Pneumococcal Antigen Urine Detected (Not Detected)
== END 2021-12-22 13:30 | disposition home or self-care (01) ==
LOC: ANHED 11:42 → ANH2MED 16:52
PROVIDERS: Internal Medicine Gastroenterology; Nurse Practitioner; Nurse Practitioner Family; Physician Assistant; Admitting Provider Family Medicine; Emergency Provider Emergency Medicine; Visit Provider Internal Medicine
DX: U07.1 COVID-19 (principal); J18.2 Hypostatic pneumonia, unspecified organism; R09.02 Hypoxemia; Z28.310 Unvaccinated for COVID-19; K70.31 Alcoholic cirrhosis of liver with ascites; M19.90 Unspecified osteoarthritis, unspecified site; R60.9 Edema, unspecified; R06.82 Tachypnea, not elsewhere classified; R00.0 Tachycardia, unspecified; E80.6 Other disorders of bilirubin metabolism; E87.1 Hypo-osmolality and hyponatremia; E87.6 Hypokalemia; F17.210 Nicotine dependence, cigarettes, uncomplicated; F12.90 Cannabis use, unspecified, uncomplicated; F10.11 Alcohol abuse, in remission; R94.31 Abnormal electrocardiogram [ECG] [EKG]
CPT/HCPCS: 36415; 36600; 71045; 71275; 80048; 80053; 82140; 82565; 82805; 83605; 83615; 83690; 83735; 83880; 83935; 84300; 84443; 84460; 84484; 85025; 85055; 85610; 85730; 87040; 87070; 87081; 87205; 87581; 87880; 87899; 93005; 96361; 96365; 96367; 96372; 96374; 96375; 99285; A9270; G0378; J0248; J0456; J0696; J1100; J1650; J7030; J8540; Q9967; U0003; U0005

== ENCOUNTER 2024-03-23 08:30 | Outpatient (CLI) | payer OTHER, SELFPAY ==
--- NOTE | ~2024-03-23 | US_ITS ---
EXAMINATION: US abdomen limited DATE: 03/23/2024 08:46 INDICATION: Alcoholic cirrhosis of liver without ascites. TECHNIQUE: Multiple grayscale and Doppler ultrasound images of the abdomen were obtained. COMPARISON: Chest CT 12/19/2021 FINDINGS: The pancreas is obscured by bowel gas. The liver demonstrates surface nodularity, consisten t with cirrhosis. The gallbladder is normal in size and contains gallstones. No gallbladder wall thic kening or sonographic Benavidez's sign. The common duct is normal and measures 5 mm. IMPRESSION: 1. Cirrhosis of the liver. 2. Cholelithiasis. Reviewed, dictated and finalized at location A. [facility]
== END 2024-03-23 08:31 | disposition home or self-care (01) ==
LOC: GOSHIMG 08:30
PROVIDERS: PCP Family Medicine; Visit Provider Family Medicine
DX: K70.30 Alcoholic cirrhosis of liver without ascites (principal); K80.20 Calculus of gallbladder without cholecystitis without obstruction
CPT/HCPCS: 76705